=== PATIENT | female | born 1985 | race Caucasian/White ===

== ENCOUNTER 2020-08-17 22:43 | Emergency (ER) | payer OTHER ==
[~2020-08-17 22:43] MED LIST: AMPICILLIN TRI500 MG PO; BACTRIM DS TAB1 EACH PO; KEFLEX500 MG PO; LEVAQUIN500 MG PO; MACROBID100 MG PO; NORCO 5-325 TA1 EACH PO; PRILOSEC20 MG PO; ZOFRAN4 M1 PO; ZOFRAN4 MG PO
== END 2020-08-17 23:25 | disposition home or self-care (01) ==
LOC: FER 22:43
DX: R73.9 Hyperglycemia, unspecified (principal); F32.9 Major depressive disorder, single episode, unspecified; F17.200 Nicotine dependence, unspecified, uncomplicated; Z79.899 Other long term (current) drug therapy
CPT/HCPCS: 99284

== ENCOUNTER 2020-11-26 11:58 | Emergency (ER) | payer OTHER ==
[2020-11-26 13:23] LABS: BILIRUBIN NEGATIVE (NEGATIVE); BLOOD 1+ Ery/uL (NEGATIVE); CLARITY CLEAR (CLEAR); COLOR YELLOW (YELLOW); GLUCOSE (U) NORMAL (NORMAL); LEUKOCYTES NEGATIVE Leu/uL (NEGATIVE); NITRITE NEGATIVE (NEGATIVE); PROTEIN NEGATIVE (NEGATIVE); SPECIFIC GRAVITY >=1.030 (1.001-1.030); UROBILINOGEN 0.2 mg/dL (0.2-1.0)
[2020-11-26 13:36] LABS: URINARY RBC RARE
[2020-11-26] MEDS ORDERED: PREDNISONE 20MG20 MG PO (14:01)
[2020-11-26] MEDS ORDERED: VENTOLIN HFA IN18 GM INH (14:01)
[2021-04-13] MEDS ORDERED: VITAMIN D3250 MC1 PO (10:34)
[2021-04-13] MEDS ORDERED: ZOCOR20 MG PO (10:34)
[2021-04-13] MEDS ORDERED: PHENTERMINE HCL15 MG PO (10:36)
== END 2020-11-26 14:13 | disposition home or self-care (01) ==
LOC: FER 11:58
PROVIDERS: Emergency Medicine
DX: J45.901 Unspecified asthma with (acute) exacerbation (principal); E11.9 Type 2 diabetes mellitus without complications; F17.200 Nicotine dependence, unspecified, uncomplicated; Z90.49 Acquired absence of other specified parts of digestive tract; Z98.890 Other specified postprocedural states; Z79.84 Long term (current) use of oral hypoglycemic drugs; Z88.6 Allergy status to analgesic agent; Z88.8 Allergy status to other drugs, medicaments and biological substances; Z91.018 Allergy to other foods; Z91.040 Latex allergy status
CPT/HCPCS: 71045; 81001; 94640; 94664; J7512

== ENCOUNTER 2020-12-14 17:46 | Emergency (ER) | payer OTHER ==
[~2020-12-14 17:46] MED LIST changes: +PREDNISONE 20MG20 MG PO; +VENTOLIN HFA IN18 GM INH
[2020-12-14 19:46] LABS: BASOPHIL 0.2 % (0-2); EOSINOPHIL 0.2 % (0-5); HCT 36.2 % (37.0-47.0); HGB 12.6 g/dl (12.5-16.0); LYMPHOCYTE 18.6 % (15-48); MCH 31.2 pg (25.0-31.0); MCHC 34.8 g/dL (32.0-36.0); MCV 89.6 fL (78.0-100.0); MONOCYTE 5.7 % (0-12); MPV 10.5 fL (6.0-9.5); NEUTROPHIL 75.1 % (41-80); NRBC 0; PLT 228 K/uL (150-400); RBC 4.04 M/uL (4.20-5.40); RDW 12.8 % (11.5-14.0); WBC 12.2 K/uL (4.0-10.5)
[2020-12-14 19:58] LABS: MONOSPOT (MONONUCLEOSIS) NEGATIVE (NEGATIVE)
[2020-12-14 20:03] LABS: BILIRUBIN NEGATIVE (NEGATIVE); BLOOD 2+ Ery/uL (NEGATIVE); CLARITY CLEAR (CLEAR); COLOR YELLOW (YELLOW); GLUCOSE (U) NORMAL (NORMAL); LEUKOCYTES NEGATIVE Leu/uL (NEGATIVE); NITRITE NEGATIVE (NEGATIVE); PROTEIN NEGATIVE (NEGATIVE); UROBILINOGEN 0.2 mg/dL (0.2-1.0); pH 6.5 (5.0-9.0)
[2020-12-14 20:10] LABS: AMPHETAMINES NEGATIVE (NEGATIVE); BARBITURATES NEGATIVE (NEGATIVE); ECSTASY (MDMA) NEGATIVE (NEGATIVE); MARIJUANA (THC) NEGATIVE (NEGATIVE); METHADONE NEGATIVE (NEGATIVE); OPIATES NEGATIVE (NEGATIVE); OXYCODONE NEGATIVE (NEGATIVE)
[2020-12-14 20:13] LABS: BACTERIA TRACE; URINARY WBC RARE
[2020-12-14 20:13] LABS: ALBUMIN 3.4 g/dL (3.4-5.0); BILIRUBIN - TOTAL 0.2 mg/dL (0.2-1.0); BUN/CREAT RATIO (CALC) 12.5 RATIO; CREATININE 0.72 mg/dL (0.51-0.95); GLOBULIN (CALCULATION) 3.5 g/dL; TOTAL PROTEIN 6.9 g/dL (6.4-8.2)
[2020-12-14 20:34] LABS: CORONAVIRUS 2019 SARS-COV-2 NEGATIVE (NEGATIVE); INFLUENZA A NAA NEGATIVE (NEGATIVE)
[2020-12-16 18:09] LABS: LYME IGG/IGM AB <0.91 ISR (0.00-0.90)
[2021-04-13] MEDS ORDERED: ZOCOR20 MG PO (10:34)
[2021-04-13] MEDS ORDERED: VITAMIN D3250 MC1 PO (10:34)
[2021-04-13] MEDS ORDERED: PHENTERMINE HCL15 MG PO (10:36)
== END 2020-12-14 21:15 | disposition home or self-care (01) ==
LOC: FER 17:46
PROVIDERS: Emergency Medicine Emergency Medical Services
DX: B34.9 Viral infection, unspecified (principal); J45.909 Unspecified asthma, uncomplicated; Z88.6 Allergy status to analgesic agent; Z88.8 Allergy status to other drugs, medicaments and biological substances; Z20.822 Contact with and (suspected) exposure to COVID-19
CPT/HCPCS: 36415; 80053; 80305; 81001; 83605; 83690; 84145; 84443; 85025; 86308; 86618; 86757; U0002

== ENCOUNTER 2021-04-14 08:12 | Emergency (ER) | payer OTHER ==
[~2021-04-14 08:12] MED LIST changes: +PHENTERMINE HCL15 MG PO; +VITAMIN D3250 MC1 PO; +ZOCOR20 MG PO
[2021-04-14] MEDS ORDERED: NAPROXEN500 MG PO (08:43)
== END 2021-04-14 08:54 | disposition home or self-care (01) ==
LOC: FER 08:12
DX: G89.29 Other chronic pain (principal); M25.531 Pain in right wrist; J45.909 Unspecified asthma, uncomplicated; F17.210 Nicotine dependence, cigarettes, uncomplicated; Z88.6 Allergy status to analgesic agent; Z88.8 Allergy status to other drugs, medicaments and biological substances; Z91.018 Allergy to other foods
CPT/HCPCS: 99283

== ENCOUNTER 2021-05-01 17:00 | Emergency (ER) | payer OTHER ==
[~2021-05-01 17:00] MED LIST changes: +NAPROXEN500 MG PO
== END 2021-05-01 19:35 | disposition home or self-care (01) ==
LOC: FER 17:00
DX: S90.31XA Contusion of right foot, initial encounter (principal); F17.210 Nicotine dependence, cigarettes, uncomplicated; Z88.6 Allergy status to analgesic agent; Z88.8 Allergy status to other drugs, medicaments and biological substances; Z91.048 Other nonmedicinal substance allergy status; W20.8XXA Other cause of strike by thrown, projected or falling object, initial encounter; Y92.009 Unspecified place in unspecified non-institutional (private) residence as the place of occurrence of the external cause
CPT/HCPCS: 73630

== ENCOUNTER 2021-08-04 07:01 | Emergency (ER) | payer OTHER ==
[2021-08-04] MEDS ORDERED: ULTRAM50 MG PO (08:23)
== END 2021-08-04 08:35 | disposition home or self-care (01) ==
LOC: FER 07:01
DX: G56.02 Carpal tunnel syndrome, left upper limb (principal)
CPT/HCPCS: 99283

== ENCOUNTER 2021-09-19 12:32 | Emergency (ER) | payer OTHER ==
[~2021-09-19 12:32] MED LIST changes: +ULTRAM50 MG PO
[2021-09-19 13:51] LABS: BASOPHIL 0.5 % (0-2); EOSINOPHIL 1.8 % (0-5); HCT 39.3 % (37.0-47.0); HGB 13.4 g/dl (12.5-16.0); LYMPHOCYTE 29.8 % (15-48); MCH 30.4 pg (25.0-31.0); MCHC 34.1 g/dL (32.0-36.0); MCV 89.1 fL (78.0-100.0); MONOCYTE 6.3 % (0-12); MPV 10.1 fL (6.0-9.5); NEUTROPHIL 61.5 % (41-80); NRBC 0; PLT 228 K/uL (150-400); RBC 4.41 M/uL (4.20-5.40); RDW 12.3 % (11.5-14.0); WBC 7.7 K/uL (4.0-10.5)
[2021-09-19 14:28] LABS: ALBUMIN 3.4 g/dL (3.4-5.0); BILIRUBIN - TOTAL 0.3 mg/dL (0.2-1.0); BUN/CREAT RATIO (CALC) 12.7 RATIO; CREATININE 1.02 mg/dL (0.51-0.95); GLOBULIN (CALCULATION) 2.9 g/dL; POTASSIUM 3.7 mmol/L (3.5-5.1); TOTAL PROTEIN 6.3 g/dL (6.4-8.2)
== END 2021-09-19 15:49 | disposition home or self-care (01) ==
LOC: FER 12:32
PROVIDERS: Physician Assistant
DX: R07.9 Chest pain, unspecified (principal); I10 Essential (primary) hypertension; R11.2 Nausea with vomiting, unspecified; F17.210 Nicotine dependence, cigarettes, uncomplicated; Z88.6 Allergy status to analgesic agent
CPT/HCPCS: 36415; 71046; 80053; 84484; 85025; 93005

== ENCOUNTER 2021-10-23 12:57 | Emergency (ER) | payer OTHER ==
[2021-10-23] MEDS ORDERED: MEDROL 4MG DOSEP4 MG PO (16:35)
[2021-10-23] MEDS ORDERED: CYCLOBENZAPRINE10 MG PO (16:35)
== END 2021-10-23 18:48 | disposition home or self-care (01) ==
LOC: FER 12:57
DX: M54.41 Lumbago with sciatica, right side (principal); I10 Essential (primary) hypertension; Z88.8 Allergy status to other drugs, medicaments and biological substances; Z91.040 Latex allergy status; Z79.899 Other long term (current) drug therapy
CPT/HCPCS: 72100